=== PATIENT | male | born 1985 | race Caucasian/White ===

== ENCOUNTER 2018-06-16 09:11 | Emergency (ER) | payer MEDICAID ==
[~2018-06-16] VITALS: Ht 170.2 cm; Wt 73.0 kg
[2018-06-16 09:21] VITALS: BP 130/78
== END 2018-06-16 17:35 | disposition left against medical advice (07) ==
LOC: ER 09:27
DX: R10.9 Unspecified abdominal pain (principal); R11.2 Nausea with vomiting, unspecified; Z53.21 Procedure and treatment not carried out due to patient leaving prior to being seen by health care provider